=== PATIENT | female | born 1970 | race Caucasian/White ===

== ENCOUNTER → 2018-11-07 | Outpatient (REF) | payer BC ==
[~2018-11-07] MED LIST: ZITHTAB PO; ZOFR4TAB16 PO
[2018-11-12 12:26] LABS: PERCENT SATURATION 8.5 % (13.2-45.0)
== END ==
LOC: M LAB REF 11:54
PROVIDERS: ATTEND Internal Medicine
DX: D50.9 Iron deficiency anemia, unspecified (principal)

== ENCOUNTER → 2022-07-21 | Outpatient (CLI) | payer BC, OTHER | LOC: M RAD 11:49 | PROVIDERS: ATTEND Internal Medicine | DX: N92.0 Excessive and frequent menstruation with regular cycle (principal); N83.291 Other ovarian cyst, right side ==

== ENCOUNTER → 2022-09-16 | Outpatient (CLI) | payer OTHER | LOC: M WHC 09:59 | PROVIDERS: ATTEND Obstetrics & Gynecology | DX: N85.8 Other specified noninflammatory disorders of uterus (principal); N85.2 Hypertrophy of uterus; D25.9 Leiomyoma of uterus, unspecified ==

== ENCOUNTER → 2023-01-24 | Outpatient (REF) | payer OTHER ==
[~2023-01-24] MED LIST changes: +CYCL-707 PO
== END ==
LOC: M LAB REF 12:38
PROVIDERS: ATTEND Internal Medicine
DX: D50.9 Iron deficiency anemia, unspecified (principal)

== ENCOUNTER 2023-01-30 06:03 | Day surgery (SDC) | payer OTHER ==
[~2023-01-30] VITALS: Ht 162.6 cm; Wt 73.0 kg
[~2023-01-30 06:03] MED LIST changes: +ceFAZolin SOD 2 GM in IV 1 EA IV ONE
[2023-01-30] MEDS ORDERED: LR 1,000 ML IV SCH ×2 (06:35→09:30)
[2023-01-30] MEDS ORDERED: IBUP-1022 PO (06:37)
[2023-01-30 06:46] LABS: HEMATOCRIT 40.4 % (36.0-47.0); HEMOGLOBIN 13.1 g/dl (12.0-15.5); MEAN CORPUSCULAR HEMOGLOBIN 28.9 pg (27.0-33.0); MEAN CORPUSCULAR HGB CONC 32.4 g/dl (32.0-36.5); PLATELET COUNT, AUTOMATED 326 10^3/uL (150-450); RED BLOOD COUNT 4.54 10^6/uL (4.00-5.40); WHITE BLOOD COUNT 4.5 10^3/uL (4.0-10.0)
[2023-01-30 06:52] LABS: HCG, SERUM QUALITATIVE NEGATIVE (NEGATIVE)
[2023-01-30] MEDS ORDERED: SCOPOLAMINE 1MG TRANSDERMAL PATCH TOP ONE (07:00)
[2023-01-30] MEDS ORDERED: KETOROLAC 60MG 2ML VIAL As Ordered ONE (07:12)
[2023-01-30] MEDS ORDERED: ONDANSETRON 4MG 2ML VIAL As Ordered ONE (07:12)
[2023-01-30] MEDS ORDERED: fentaNYL 100 MCG/2 ML INJECTION As Ordered ONE (07:12)
[2023-01-30] MEDS ORDERED: ROCURONIUM BROMIDE 50MG/5ML VIAL As Ordered ONE ×2 (07:12→09:19)
[2023-01-30] MEDS ORDERED: MIDAZOLAM INJ 2MG/2ML VIAL As Ordered ONE (07:12)
[2023-01-30] MEDS ORDERED: propofoL 200 MG/20 ML VIAL As Ordered ONE (07:12)
[2023-01-30] MEDS ORDERED: LIDOCAINE 2% 100MG/5ML SDV (FOR ANES.) As Ordered ONE (07:13)
[2023-01-30] MEDS ORDERED: ACETAMINOPHEN 1000MG 100ML IV BAG As Ordered ONE (07:13)
[2023-01-30] MEDS ORDERED: IBUP80TA PO (08:01)
[2023-01-30] MEDS ORDERED: PERC5TAB12 PO (08:02)
[2023-01-30] MEDS ORDERED: KETAMINE HCL 200MG/20ML VIAL As Ordered ONE (08:25)
[2023-01-30] MEDS ORDERED: SUGAMMADEX SODIUM 500 MG/5 ML VIAL (BRIDION) As Ordered ONE (09:19)
[2023-01-30] MEDS ORDERED: ONDANSETRON 4MG 2ML VIAL IV PRN (09:30)
[2023-01-30] MEDS ORDERED: oxyCODONE 5MG TAB PO PRN (09:30)
[2023-01-30] MEDS ORDERED: PERCOCET 5MG/325MG TAB PO PRN (09:50)
[2023-01-30] MEDS: fentaNYL 100 MCG/2 ML INJECTION IV PRN ×4 (10:10→10:25)
[2023-01-30 13:05] VITALS: BP 125/78; TEMP 98.1; O2SAT 100
[2023-01-30] MEDS ORDERED: KETOROLAC 30 MG/ML 1ML VIAL IV SCH (15:00)
== END 2023-01-30 13:05 | disposition home or self-care (01) ==
LOC: M SDC 06:03
PROVIDERS: ATTEND Obstetrics & Gynecology
DX: D25.9 Leiomyoma of uterus, unspecified (principal); N80.03 Adenomyosis of the uterus; N83.201 Unspecified ovarian cyst, right side; Z88.2 Allergy status to sulfonamides; Z88.5 Allergy status to narcotic agent; G43.909 Migraine, unspecified, not intractable, without status migrainosus; Z79.899 Other long term (current) drug therapy
CPT/HCPCS: 36415; 58571; 84703; 85027; 86850; 86870; 86900; 86901; 88307; J0131; J0665; J0690; J1100; J1885; J2250; J2405; J3010; S2900

== ENCOUNTER → 2023-08-01 | Outpatient (REF) | payer OTHER ==
[~2023-08-01] MED LIST changes: +IBUP-1022 PO; +IBUP80TA PO; +PERC5TAB12 PO; -ceFAZolin SOD 2 GM in IV 1 EA IV ONE
== END ==
LOC: M LAB REF 12:42
PROVIDERS: ATTEND Internal Medicine
DX: D50.9 Iron deficiency anemia, unspecified (principal)

== ENCOUNTER → 2023-12-06 | Outpatient (REF) | payer BC | LOC: M LAB REF 12:35 | PROVIDERS: ATTEND Internal Medicine | DX: M25.50 Pain in unspecified joint (principal) ==

== ENCOUNTER → 2024-07-24 | Outpatient (CLI) | payer BC | LOC: M RAD 14:33 | PROVIDERS: ATTEND Internal Medicine | DX: M79.602 Pain in left arm (principal); R59.0 Localized enlarged lymph nodes ==

== ENCOUNTER → 2024-07-30 | Outpatient (REF) | payer BC | LOC: M LAB REF 12:42 | PROVIDERS: ATTEND Internal Medicine | DX: M25.50 Pain in unspecified joint (principal) ==